=== PATIENT | male | born 1990 | race Caucasian/White ===

== ENCOUNTER 2019-03-23 02:04 | Emergency (ER) | payer OTHER ==
[2019-03-23] MEDS: predniSONE 20 MG TAB PO (03:13)
[2019-03-23] MEDS: IPRATROPIUM (NEB) 0.5 MG/2.5 ML AMP NEB (03:17)
[2019-03-23] MEDS: LEVALBUTEROL (NEB) 1.25 MG/0.5 ML AMP INH (03:20)
== END 2019-03-23 03:51 | disposition home or self-care (01) ==
LOC: E/R 02:04
DX: J45.901 Unspecified asthma with (acute) exacerbation (principal)
CPT/HCPCS: 94664; 99284-25